=== PATIENT | male | born 1985 | race Caucasian/White ===

== ENCOUNTER 2025-08-30 08:39 | Emergency (ER) | payer OTHER ==
[2025-08-30] MEDS: Tetracaine HCl/PF 0.5% 4 ML Bottle EYEBOTH ONE (09:00)
[2025-08-30] MEDS: Fluorescein 1 MG Ophth Strip EYEBOTH ONE (09:00)
== END 2025-08-30 09:59 | disposition home or self-care (01) ==
LOC: MW.ED 08:39
DX: T15.02XA Foreign body in cornea, left eye, initial encounter (principal); W44.8XXA Other foreign body entering into or through a natural orifice, initial encounter
CPT/HCPCS: 65220; 99283; 99283-25; J3490